=== PATIENT | male | born 2005 | race African-American/Black ===

== ENCOUNTER 2024-02-22 16:00 | Emergency (ER) | payer MEDICAID, OTHER ==
[~2024-02-22] VITALS: Ht 170.2 cm; Wt 64.4 kg
[2024-02-22 16:49] VITALS: BP 118/48; TEMP 97.9
[2024-02-22 16:53] VITALS: PULSE 94; RESP 16; O2SAT 98
[2024-02-22] MEDS ORDERED: NAPR-957 PO (17:26)
== END 2024-02-22 18:22 | disposition home or self-care (01) ==
LOC: ER 16:00
DX: S63.592A Other specified sprain of left wrist, initial encounter (principal); X58.XXXA Exposure to other specified factors, initial encounter; Y93.83 Activity, rough housing and horseplay; Y92.89 Other specified places as the place of occurrence of the external cause; Y99.8 Other external cause status
CPT/HCPCS: 73090; 73110